=== PATIENT | female | born 1995 | race Caucasian/White ===

== ENCOUNTER 2022-05-10 18:33 | Emergency (ER) | payer MEDICAID, SELFPAY ==
[2022-05-10 18:36] VITALS: BP 139/83; PULSE 114; RESP 18; TEMP 36.8; O2SAT 97; BMI 19.2
--- NOTE | 2022-05-10 18:55 | ED.ABDPAIN ---
HPI - Abdominal Pain General Chief Complaint: Abdominal Pain Stated Complaint: Lower Right side Pelvic pain Time Seen by Provider: 05/10/22 18:41 History of Present Illness HPI narrative: This 26-year-old female comes in reporting right lower quadrant abdominal pain that began this morning. She states that it has been rather constant through the day but not particularly severe. She rates that at 3/10 in severity. She did have some nausea but no vomiting. She states that she has had an ovarian cyst in the past and thought that this might be what it is again today. She called the nurse line who instructed her to come in here. She has not had any fever. She does not have worsening pain with movement in particular. She does report some vaginal discomfort. There is no report of any recent exposures to infection. She denies any chance of . Related Data Home Medications Medication Instructions Recorded Confirmed No Known Home Medications 05/10/22 05/10/22 Allergies Allergy/AdvReac Type Severity Reaction Status Date / Time No Known Drug Allergies Allergy Verified 05/10/22 18:40 Review of Systems Status of ROS Reports: 10 or more systems reviewed and unremarkable except as noted in History and below Narrative Constitutional: No fevers, no weight gain or loss. Eyes: No discharge. No vision changes. HENT: No congestion, no sore throat, no ear pain. Cardiovascular: No chest pain, no palpitations. Respiratory: No shortness of breath, no wheezes, no cough. Gastrointestinal: No vomiting, no diarrhea. Right lower quadrant abdominal pain with some nausea. Genitourinary: No dysuria, no hematuria. Musculoskeletal: Normal range of motion. Skin: No rashes, no pruritis. Neurological: No dizziness, weakness, sensory change, speech change. Endo/Heme/Allergies: No bruising or bleeding. No polydipsia. Pysch: no suicidality, no anxiety, no insomnia. All other systems reviewed and are negative. Exam Narrative: Exam Narrative: Constitutional: Well-developed, well-nourished, no acute distress. HEENT: Normocephalic, atraumatic. Neck: Normal range of motion. Nontender. Supple. Heart: Regular. No murmurs. Normal rate. Intact distal pulses. Lungs: Clear to auscultation. No chest discomfort. No wheezes, rhonchi, or rales. Abdomen: Normal bowel sounds. Tenderness in the lowest part of the right lower quadrant. No particular tenderness at McBurney's point. No rebound tenderness. Genitalia: Deferred. Back: No midline tenderness. Normal range of motion. Extremities: Normal range of motion. No injury. Skin: Intact. No rash. Warm. No erythema or pallor. Neurologic: No altered sensation. No weakness. Alert and oriented. Psychiatric: No suicidality. No anxiety or depression. No insomnia. Nursing notes and vitals signs are reviewed. Const: Vital Signs, click to edit/add: Vital Signs - 24 hr 05/10/22 18:36 Temperature 98.2 F Pulse Rate [Right Pulse Oximeter] 114 H Respiratory Rate 18 Blood Pressure [Ri ght Upper Arm] 139/83 Pulse Oximetry 97 Oxygen Delivery Me thod Room Air Course Vital Signs Vital signs: Initial Vital Signs Temperature 98.2 F 05/10/22 18:36 Temperature Source Temporal Artery Scan 05/10/22 18:36 Pulse Rate 114 H 05/10/22 18:36 Respiratory Rate 18 05/10/22 18:36 Blood Pressure 139/83 05/10/22 18:36 Blood Pressure Mean 101 05/10/22 18:36 Blood Pressure Position Sitting 05/10/22 18:36 Pulse Oximetry 97 05/10/22 18:36 Oxygen Delivery Method 05/10/22 18:36 Vital Signs Temperature 98.2 F 05/10/22 18:36 Pulse Rate 114 H 05/10/22 18:36 Respiratory Rate 18 05/10/22 18:36 Blood Pressure 139/83 05/10/22 18:36 Pulse Oximetry 97 05/10/22 18:36 Oxygen Delivery Method 05/10/22 18:36 Temperature 98.2 F 05/10/22 18:36 Pulse Rate 114 H 05/10/22 18:36 Respiratory Rate 18 05/10/22 18:36 Blood Pressure 139/83 05/10/22 18:36 Pulse Oximetry 97 05/10/22 18:36 Oxygen Delivery Method 05/10/22 18:36 MDM - Abdominal Pain MDM Narrative Medical decision making narrative: This patient comes in with right lower quadrant abdominal pain that is suspicious for ovarian cyst. She is 2 weeks post menses and so ovulation may be occurring at this time and this may be mittelschmerz pain. Urinalysis is negative for infection. Her exam is not suspicious for a more serious problem such as appendicitis. Her pain is rated at about 3/10 in severity. I did discuss other lab and imaging options which the patient declined in a process of shared decision making. She is aware of signs or symptoms that would indicate a need for return and re-evaluation. Urine test is negative today. She did receive a prescription for Toradol. Lab Data Labs: Lab Results 05/10/22 05/10/22 Range/Units 18:55 18:55 HCG, Qual Negative (Negative) Urine Color Yellow (Yellow) Urine Appearance Slightly Cloudy A (Clear) Urine pH 8.5 (5.0-8.5) Ur Specific [place] 1.020 (1.000-1.030) Urine Protein 1+ A (Negative) Urine Glucose (UA) Negative (Negative) Urine Ketones Negative (Negative) Urine Blood Negative (Negative) Urine Nitrite Negative (Negative) Urine Bilirubin Negative (Negative) Urine Urobilinogen 1.0 (0.2-1.0) Ur Leukocyte Esterase Negative (Negative) Urine RBC 0-2 (0-2) Urine WBC 0-2 (0-5) Ur Squamous Epith Cells Moderate A (None-Few) Urine Bacteria Moderate A (None) Discharge Plan Discharge Clinical Impression: Abdominal pain Patient Disposition: Home, Self-Care Condition: Stable Additional Instructions: Use medication as needed and directed. Follow up with MD or return if worsening symptoms happen. Prescriptions: No Action No Known Home Medications Follow Up/Referrals: Provider,Not a Local [Primary Care Provider] - Stand Alone Forms: [employer] Info Instructions
[2022-05-10 19:05] LABS: Appearance Urine Slightly Cloudy (Clear); Bilirubin Urine Negative (Negative); Blood Urine Negative (Negative); Color Urine Yellow (Yellow); Glucose Urine Negative (Negative); Ketones Urine Negative (Negative); Leukocyte Esterase Urine Negative (Negative); Nitrite Urine Negative (Negative); Protein Urine 1+ (Negative); pH Urine 8.5 (5.0-8.5)
[2022-05-10 19:16] LABS: Bacteria Urine Moderate; RBC Urine 0-2 (0-2); Squamous Epithelial Cell Urine Moderate (None-Few); WBC Urine 0-2 (0-5)
[2022-05-10 19:34] LABS: HCG Qualitative* Negative (Negative)
== END 2022-05-10 20:26 | disposition home or self-care (01) ==
PROVIDERS: Emergency Provider Emergency Medicine Emergency Medical Services
DX: R10.31 Right lower quadrant pain (principal); R11.0 Nausea
CPT/HCPCS: 81001; 84703; 87086; 99283; 99284